=== PATIENT | male | born 1950 | race Caucasian/White ===

== ENCOUNTER 2020-02-24 12:13 | Emergency (ER) | payer MEDICARE ==
[~2020-02-24] VITALS: Ht 170.2 cm; Wt 95.3 kg
[~2020-02-24 12:13] MED LIST: ADULT LOW DOSE81 MG PO; B COMPLEX PO; DIOVAN PO; DIOVAN40 MG; GLUCOSAMINE &1 EACH PO; MULTIVITAMINS PO; NASAL SPRAY; NITROQUICK0.4 MG SL; OMEGA 3 PO; PLAVIX 75 MG TA75 MG PO; PREDNISONE 20 M20 M1; PREDNISONE 5 MG5 M1 PO; PREVACID; PREVACID PO; VITCB500GO PO; ZOCOR40 MG PO; [UNRECOGNIZED DRUG - REMARK] PO
[2020-02-24] MEDS ORDERED: NEURONTIN 300M300 M2 PO (12:27)
[2020-02-24] MEDS ORDERED: DULOXETINE HCL60 MG PO (12:27)
[2020-02-24] MEDS ORDERED: KAPSPARGO SPRIN25 MG PO (12:28)
[2020-02-24] MEDS ORDERED: LIPITOR40 MG PO (12:28)
[2020-02-24] MEDS ORDERED: TERAZOSIN HCL10 MG PO (12:28)
[2020-02-24] MEDS ORDERED: MODAFINIL200 MG PO (12:29)
[2020-02-24] MEDS ORDERED: COZAAR 25 MG TA25 M1 PO (12:29)
[2020-02-24] MEDS ORDERED: TROSPIUM CHLORI60 MG PO (12:30)
[2020-02-24] MEDS ORDERED: TESTOSTERON100 MG/ML IM (12:30)
[2020-02-24] MEDS ORDERED: CELEBREX 200 M200 M1 PO (12:31)
[2020-02-24] MEDS ORDERED: CALCIUM500 MG PO (12:32)
[2020-02-24] MEDS ORDERED: SUPER THERAVIT1 EACH PO (12:32)
[2020-02-24] MEDS ORDERED: ASA81BEC PO (12:32)
[2020-02-24] MEDS ORDERED: ARNUITY ELLIPT50 MCG INH (12:32)
[2020-02-24] MEDS ORDERED: COQ-10100 MG PO (12:33)
[2020-02-24] MEDS ORDERED: PREVACID30 MG PO (12:33)
[2020-02-24] MEDS ORDERED: PROBIOTIC1 EAC3 PO (12:33)
[2020-02-24] MEDS ORDERED: ARICEPT10 M1 PO (12:34)
[2020-02-24 12:35] LABS: ABSOLUTE EOSINOPHILS 0.1 thou/uL (0.0-0.7); ABSOLUTE LYMPHOCYTES 1.1 thou/uL (0.8-5.3); ABSOLUTE MONOCYTES 0.9 thou/uL (0.0-1.2); BASOPHILS 0.3 %; HEMATOCRIT 51.1 % (42.0-52.0); LYMPHOCYTES 10.1 %; MCH 33.1 pg (26.0-34.0); MCHC 35.3 g/dL (28.0-37.0); MCV 93.8 fL (80.0-100.0); MONOCYTES 7.8 %; MPV 7.8 fl. (7.2-11.1); NUCLEATED RBCS 0 /100WBC; PLATELET COUNT* 210 thou/uL (150-400); POLYS 80.8 %; RBC 5.45 mil/uL (4.50-6.00); WBC 11.1 thou/uL (4.0-11.0)
[2020-02-24 12:47] LABS: CALCIUM 9.8 mg/dL (8.5-10.1); CREATININE 0.8 mg/dL (0.6-1.3); POTASSIUM 4.2 mmol/L (3.5-5.1)
[2020-02-24 12:57] LABS: ALBUMIN 4.6 g/dL (3.4-5.0); TOTAL BILIRUBIN 0.6 mg/dL (<0.1-1.0); TOTAL PROTEIN 7.6 g/dL (6.4-8.2)
[2020-02-24 13:19] LABS: URINE BILIRUBIN NEGATIVE (Negative); URINE BLOOD NEGATIVE (Negative); URINE CLARITY CLEAR; URINE COLOR YELLOW; URINE GLUCOSE-RANDOM NEGATIVE (Negative); URINE KETONES NEGATIVE (Negative); URINE LEUKOCYTES-REFLEX NEGATIVE (Negative); URINE NITRITE-REFLEX NEGATIVE (Negative); URINE PROTEIN NEGATIVE (Negative); URINE SPECIFIC GRAVITY <= 1.005 (1.005-1.030); URINE UROBILINOGEN 0.2 E.U./dl (0.2-1.0)
[2020-02-24 15:47] VITALS: BP 154/76
--- NOTE | 2020-02-24 16:45 | EKG ---
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: : 1950 Requested By: Danis Brown Order Number: [id number] MD: Roland Squires Measurements Intervals [place] Rate: 103 P: 44 MT: 168 QRS: 5 QRSD: 105 T: 18 QT: 361 QTc: 473 Interpretive Statements Sinus tachycardia Inferior infarct, old Compared to ECG 06/20/2010 08:10:23 Sinus rhythm no longer present Electronically Signed On 02-24-2020 16:45:31 CDT by Roland Squires [email or web address] <ELECTRONICALLY SIGNED> By: Roland Squires MD, [facility] 02/24/20 1645 16 16 Roland Squires MD, [facility] /EPI
== END 2020-02-24 15:48 | disposition home or self-care (01) ==
LOC: M.ERS 12:13
PROVIDERS: Physician Assistant
DX: R53.1 Weakness (principal); R10.33 Periumbilical pain; Z20.828 Contact with and (suspected) exposure to other viral communicable diseases; R19.7 Diarrhea, unspecified; I10 Essential (primary) hypertension; Z90.89 Acquired absence of other organs